=== PATIENT | male | born 1985 | race Caucasian/White ===

== ENCOUNTER 2021-08-29 16:55 | Emergency (ER) | payer MEDICAID ==
[~2021-08-29] VITALS: Ht 177.8 cm; Wt 80.0 kg
[2021-08-29] MEDS ORDERED: IBUPROFEN 400MG TABLET PO ONE (22:45)
[2021-08-29] MEDS ORDERED: AMOXICILLIN/POTASSIUM CLAVULANATE 875/125MG TAB PO ONE (22:45)
[2021-08-29] MEDS ORDERED: ACETAMINOPHEN 325MG TABLET PO ONE (22:45)
[2021-08-29] MEDS ORDERED: TOPUD MT (23:21)
[2021-08-29] MEDS ORDERED: NAPR-1176 MT (23:21)
[2021-08-29] MEDS ORDERED: AMOX-424 MT (23:21)
[2021-08-29 23:29] VITALS: BP 138/78
== END 2021-08-29 23:30 | disposition home or self-care (01) ==
LOC: ER 16:55
DX: S61.250A Open bite of right index finger without damage to nail, initial encounter (principal); W54.0XXA Bitten by dog, initial encounter; Y93.89 Activity, other specified; Y92.488 Other paved roadways as the place of occurrence of the external cause
CPT/HCPCS: 73130; 99284